=== PATIENT | male | born 1985 | race Caucasian/White ===

== ENCOUNTER 2016-09-12 13:15 | Emergency (ER) | payer OTHER ==
[2016-09-12 13:16] VITALS: BP 100/70; PULSE 88; RESP 22; O2SAT 100
--- NOTE | 2016-09-12 13:41 | ED.REPORT ---
HPI-Rash / Abscess Date of Service Sep 12, 2016 ED Provider: Ravi Amaya MD Patient presents with abscess in the right distal shoulder. 4 days since onset. Patient is currently withdrawing from alcohol and heroin. Otherwise he reports no systemic symptoms of abscess complication. Pain 10 out of 10 does not radiate. Pain has become progressively worse over the last 4 days. Nothing makes it better palpation makes it worse. Patient currently has a bed with crisis requires medical attention to drain the abscess on his shoulder Nursing Notes Stated Complaint: ABSCESS ON RT SHOULDER Chief Complaint: Skin Rash/Abscess Nursing Notes Reviewed: Yes Allergies: Coded Allergies: Penicillins (Verified Allergy, Unknown, 09/12/16) Sulfa (Sulfonamide Antibiotics) (Verified Allergy, Unknown, 09/12/16) acetaminophen (Verified Allergy, Unknown, 09/12/16) aspirin (Verified Allergy, Unknown, 09/12/16) Scheduled Buprenorphine HCl/Naloxone HCl (Suboxone 8 mg-2 mg Sl Film) 1 Each Film 3 EACH SL DAILY General Time Seen by MD: 13:41 Chief Complaint Abscess Hx Obtained From: Patient Arrived By: Walk-in Onset Occurred: 4 days ago Symptom Duration: Since onset Location: : Shoulder (Right distal) Quality: Aching, Painful Severity: Current: Pain level 10 out of 10 Similar Sx Previous: Yes Past Medical History Past Medical History none reported Smoking History Current Every Day Smoker Social History Alcohol Use: >5 per day Drug Use: IV drugs, Other (Heroin) Ambulatory Status Independent Review of Systems Constitutional: Reports: Chills, Malaise, Denies: Fever GI: Reports: Nausea, Vomiting Skin: Reports Rash Complete sys rev & neg: except as marked. Neurologic: Reports: Headache Psychiatric: Reports: Agitation, Anxiety, Hallucinations, visual, Stress Physical Exam Initial Vital Signs Vital Signs (First) Date Time Temp Pulse Resp B/P Pulse Ox O2 Delivery O2 Flow Rate FiO2 09/12/16 13:16 36.8 88 22 100/70 100 Room Air Initial VS: Reviewed, Vital signs normal Head / Eyes: Atraumatic, Normocephalic ENT: Mucous membranes moist Neck: Supple Respiratory: Breath sounds normal Cardiovascular: Regular rate & rhythm Neurologic: Alert, Oriented Psychiatric: Normal thought content Distress / Hydration: Positive: Distress moderate Behavior: Positive: Anxious, Restless Skin: Warm, Dry Abscess #1 Location/Condition: Positive: Erythema surrounding (15 cm area), Indurated (4 cm area), Location (R distal shoulder ), Medium, Tender Procedures Incision & Drainage Abscess Time: 15:35 Procedure Performed by: ED physician Consent / Setup / Site Prep: Consent from patient, Time-out performed, Hand hygiene observed Location of Abscess: right shoulder Local Anesthesia: Lidocaine 1%, Bupivacaine 0.5% Incised Abscess with Scalpel: #10 Pus Drained: Medium, Bloody Irrigation: Yes, 50 cc Post-Procedure / Complications: Dressing applied, No complications, Condition improved, Tolerated procedure well, Patient stable Re-Eval/Medical Decision Med Decision/Clinical Course Patient was given Suboxone 16 mg as well as Ativan 2 mg by mouth to calm symptoms of withdrawal. Re-Evaluation/Progress : Time of Eval: 15:35 Re-Evaluation/Progress Note: Discussed plan for incision and drainage of the abscess along with plan for discharge. Patient understands and agrees to plan. All questions were addressed. Counseled Regarding: Diagnosis, Lab results, Need for follow-up, When/why to return to ED Safety Concerns: Homeless, Substance abuse Discharge & Departure Impression: Primary Impression: Abscess Additional Impression: Opiate addiction Substance use status: uncomplicated Qualified Code: F11.20 - Opioid dependence, uncomplicated Disposition: Home Discharge Condition All VS Reviewed: Yes Condition: Stable Patient Instructions: Abscess (ED) Additional Instructions: You obviously had a large abscess over the right shoulder. This was drained. I recommend that you take the Keflex as previously prescribed. Also Suboxone 24 mg daily for the next 4 days. Call to make an appointment at [facility] or [facility] [place] [facility] for ongoing Suboxone prescription. Attending Statement The patient was seen and examined together with Dr. Ochoa on 09/12/2016 and I agree with the history, exam and plan as outlined in the note above. Ravi Amaya MD Sep 12, 2016 13:41 Dami Ochoa DO Sep 12, 2016 14:15 Oneyda Cha Sep 12, 2016 15:43
[2016-09-12] MEDS ORDERED: LORazepam 2 mg Tablet PO ONE ×2 (14:25→15:25)
[2016-09-12] MEDS ORDERED: Buprenorphine 2 mg SL Tablet SL ONE ×2 (14:25→15:25)
[2016-09-12] MEDS ORDERED: BUPR1FIL3 SL (15:53)
== END 2016-09-12 16:04 | disposition home or self-care (01) ==
LOC: SED 13:15
DX: L02.413 Cutaneous abscess of right upper limb (principal); F11.20 Opioid dependence, uncomplicated; F17.200 Nicotine dependence, unspecified, uncomplicated; Z88.0 Allergy status to penicillin; Z88.2 Allergy status to sulfonamides; Z88.8 Allergy status to other drugs, medicaments and biological substances

== ENCOUNTER 2016-09-13 19:44 | Emergency (ER) | payer OTHER ==
[~2016-09-13] VITALS: Ht 177.8 cm; Wt 79.0 kg
[~2016-09-13 19:44] MED LIST: BUPR1FIL3 SL
[2016-09-13 19:47] VITALS: BP 119/77; PULSE 90; RESP 20; O2SAT 97
[2016-09-13 21:05] VITALS: BP 123/45; PULSE 84; RESP 14; O2SAT 96
--- NOTE | 2016-09-13 21:26 | ED.REPORT ---
HPI-General Illness Date of Service Sep 13, 2016 ED Provider: Tristin Yadav MD Pt is a 31 y/o male w/ a hx of heroin and alcohol abuse presenting to the ED due to withdrawal of alcohol and heroin. He has been staying at [facility] for alcohol and heroin withdrawal but was told to come back here because he ran out of both Ativan and Suboxone. He was seen in the ED yesterday at which time he had an abscess of his right arm incised and drained. He has a history of alcoholic seizures and his last drink was 2 days ago. His symptoms now are cold sweats, tremor, hallucinations, insomnia, nausea, and vomiting. Pt denies fever. Nursing Notes Stated Complaint: WITHDRAWAL & ABSCESS Chief Complaint: Substance Abuse Nursing Notes Reviewed: Yes Allergies: Coded Allergies: Penicillins (Verified Allergy, Unknown, 09/12/16) Sulfa (Sulfonamide Antibiotics) (Verified Allergy, Unknown, 09/12/16) acetaminophen (Verified Allergy, Unknown, 09/12/16) aspirin (Verified Allergy, Unknown, 09/12/16) Scheduled Buprenorphine HCl/Naloxone HCl (Suboxone 8 mg-2 mg Sl Film) 1 Each Film 3 EACH SL DAILY General Time Seen by MD: 20:55 Chief Complaint Other (withdrawal) Hx Obtained From: Patient Arrived By: Walk-in Sudden in Onset?: No Onset Occurred: 5 - 8 hours ago Symptom Duration: Since onset Severity: Current: No pain currently Severity: Maximum: No pain Recent Healthcare: Recent doctor visit, Recent testing, Previous diagnosis, Prior workup Similar Sx Previous: Yes Past Medical History Past Medical History Heroin abuse Alcohol abuse Abscesses Past Surgical History None reported Smoking History Current Every Day Smoker Social History Alcohol Use: >5 per day Drug Use: IV drugs, Other Ambulatory Status Independent Review of Systems Full Review of Systems Constitutional: Reports: Chills GI: Reports: Nausea, Vomiting Skin: Reports Diaphoresis Neurologic: Reports: Shaking Psychiatric: Reports: Hallucinations, visual, Insomnia, Stress Complete sys rev & neg: except as marked. Physical Exam Constitutional: Disheveled appearing and sitting in a chair on the side of the room. Head: Normocephalic and atraumatic. Neck: Supple, no tracheal deviation. Cardiovascular: Normal rate, regular rhythm. Pulmonary/Chest: Effort normal. No respiratory distress. Musculoskeletal: Range of motion grossly intact, moving all extremities. Neurological: AOx3. Normal gait. Skin: Warm and dry, no rashes or pallor appreciated. Psychiatric: Agitated. Not endorsing any SI or HI Vital Signs Vital Signs Date Time Temp Pulse Resp B/P Pulse Ox O2 Delivery O2 Flow Rate FiO2 09/13/16 21:05 84 14 123/45 96 09/13/16 19:47 36.4 90 20 119/77 97 Room Air Initial VS: Reviewed, Vital signs normal Re-Eval/Medical Decision Med Decision/Clinical Course 31M w/ hx of substance abuse and alcohol abuse here requesting suboxone and ativan for heroin and alcohol withdrawal, respectively. Upon initial eval, patient agitated at waiting in the ED for treatment and wants something immediately. Discussed that I do not prescribe suboxone and patient became even more agitated. Symptoms are described as "the exact same" as when he's withdrawn previously. Vitals here reassuring. Before completion of evaluation here in the ED, patient eloped before being able to receive discharge instructions or risks of leaving AMA. Time of Eval: 21:30 Re-Evaluation/Progress Note: Patient eloped. Counseled Regarding: Diagnosis, Need for follow-up, When/why to return to ED Discharge & Departure Primary Impression: Alcohol withdrawal Complication of substance-induced condition: uncomplicated Qualified Code: F10.230 - Alcohol dependence with withdrawal, uncomplicated Additional Impressions: Opiate withdrawal History of elopement from health care facility Disposition: AGAINST MEDICAL ADVICE (ELOPED) Discharge Condition All VS Reviewed: Yes Condition: Stable Referrals: [facility]OPCP (PCP) [facility] Scribe Attestation Portions of this note were transcribed by Kahlil Avalos. I, Dr. Yadav, personally performed the history, physical exam and medical decision-making; I reviewed and confirmed the accuracy of the information in the transcribed note. Signed by Ginna Arizmendi, 09/13/16 - [id number] copies to: Jamaal RespTristin Spaulding MD Sep 13, 2016 21:26 KAHLIL AVALOS Sep 13, 2016 21:35
[2016-09-13] MEDS ORDERED: cloNIDine 0.1 mg Tablet PO ONE (21:35)
== END 2016-09-13 21:50 | disposition left against medical advice (07) ==
LOC: SED 19:44
DX: F10.230 Alcohol dependence with withdrawal, uncomplicated (principal); F11.23 Opioid dependence with withdrawal; F17.200 Nicotine dependence, unspecified, uncomplicated; Z88.0 Allergy status to penicillin; Z88.2 Allergy status to sulfonamides; Z88.6 Allergy status to analgesic agent; Z79.899 Other long term (current) drug therapy